=== PATIENT | female | born 1975 | race Two or more races ===

== ENCOUNTER 2020-12-20 12:15 | Outpatient (CLI) | payer OTHER | END 2020-12-20 12:18 | disposition home or self-care (01) | LOC: SONOGRAMA 12:15 | PROVIDERS: ATTEND Pathology Anatomic Pathology & Clinical Pathology | DX: E04.2 Nontoxic multinodular goiter (principal) ==

== ENCOUNTER 2021-10-17 09:36 | Outpatient (CLI) | payer OTHER | END 2021-10-17 09:39 | disposition home or self-care (01) | LOC: SONOGRAMA 09:36 | PROVIDERS: ATTEND Pathology Anatomic Pathology & Clinical Pathology | DX: E04.2 Nontoxic multinodular goiter (principal) ==